=== PATIENT | male | born 1955 | race Caucasian/White ===

== ENCOUNTER 2017-08-01 10:26 | Emergency (ER) | payer SELFPAY ==
[~2017-08-01] VITALS: Ht 177.8 cm; Wt 75.1 kg
[~2017-08-01 10:26] MED LIST: Z.0.NO CURRENT MEDS
[2017-08-01 10:43] VITALS: BP 164/99; PULSE 94; RESP 16; TEMP 97.5; O2SAT 92
[2017-08-01] MEDS ORDERED: NAPR500 PO (11:00)
[2017-08-01] MEDS ORDERED: CYCL10TA PO (11:00)
[2017-08-01] MEDS ORDERED: LIDO1PAD52 TOPICAL (11:00)
[2017-08-01] MEDS ORDERED: IBUP1TAB7 PO (11:36)
[2017-08-01] MEDS ORDERED: ROBA750T PO (11:36)
--- NOTE | 2017-08-01 11:37 | PD ---
HPI Chief Complaint: Back/ Neck Pain or Injury Time Seen by Provider: 11:27 Travel History International Travel<30 days: No Contact w/Intl Traveler<30days: No Traveled to known affect area: No History of Present Illness HPI 62-year-old male here with upper and lower back pain 2 weeks. Patient reports he injured the back while playing softball when he overstretched stretched to catch a ball. He reports pain is intermittent, spasming in nature, worse with twisting and relieved with rest. He is currently taking Naprosyn and Flexeril with minimal relief. He denies fever, incontinence, saddle anesthesia, paresthesia or weakness in extremities. Symptom severity is moderate. [facility] Past Medical History Medical History: Denies Significant Hx Past Surgical History Surgical History: No Previous Surgery Social History Alcohol Use: No Tobacco Use: No Allergies-Medications (Allergen,Severity, Reaction): Coded Allergies: No Known Allergies (Verified Allergy, Mild, 08/01/17) Reported Meds & Prescriptions Reported Meds & Active Scripts Active Ibuprofen 800 Mg Tab 800 Mg PO Q6HR PRN Robaxin (Methocarbamol) 750 Mg Tab 750 Mg PO QID Reported Lidocaine Patch 12 HR (Lidocaine) 5 % Patch 1 Patch TOPICAL DAILY Remove patch after 12 hours Naprosyn (Naproxen) 500 Mg Tab 500 Mg PO BID Flexeril (Cyclobenzaprine HCl) 10 Mg Tab 10 Mg PO TID Review of Systems Except as stated in HPI: all other systems reviewed are Neg Physical Exam Narrative GENERAL: Alert, well-appearing male in no distress. SKIN: Warm and dry. HEAD: Normocephalic. EYES: No scleral icterus. No injection or drainage. NECK: Supple, trachea midline. No JVD or lymphadenopathy. CARDIOVASCULAR: Regular rate and rhythm without murmurs, gallops, or rubs. RESPIRATORY: Breath sounds equal bilaterally. No accessory muscle use. GASTROINTESTINAL: Abdomen soft, non-tender, nondistended. MUSCULOSKELETAL: No cyanosis, or edema. Normal strength and sensation in all extremities BACK: No tenderness of the cervical, thoracic, lumbar spine. Without obvious deformity. No CVA tenderness. Generalized tenderness to the paraspinous musculature of the back NEUROLOGICAL: Awake and alert. Motor and sensory grossly within normal limits. Five out of 5 muscle strength in all muscle groups. Dorsiflex and plantarflex intact Data Data Last Documented VS Vital Signs Date Time Temp Pulse Resp B/P (MAP) Pulse Ox O2 Delivery O2 Flow Rate FiO2 08/01/17 10:43 97.5 94 16 164/99 (120) 92 Orders Orders Ed Discharge Order (08/01/17 11:37) Ketorolac Inj (Toradol Inj) (08/01/17 11:45) Orphenadrine Inj (Norflex Inj) (08/01/17 11:45) MDM Medical Decision Making Medical Screen Exam Complete: Yes Emergency Medical Condition: Yes Differential Diagnosis Strain versus sprain versus fracture Narrative Course 62 year old male with upper and lower back pain after playing softball 2 weeks ago. On exam patient has no spinal tenderness. He has generalized tenderness to the paraspinous musculature of the back. He has a normal neurologic exam. He was instructed to stop the Naprosyn and Flexeril and start the medications prescribed today. Diagnosis Primary Impression: Upper back strain Qualified Codes: S29.012A - Strain of muscle and tendon of back wall of thorax , initial encounter Referrals: Primary Care Physician Additional Instructions: Avoid heavy lifting or strenuous activity. Use ice and/or heat for comfort. Take medications as prescribed. Scripts Ibuprofen (Ibuprofen) 800 Mg Tab 800 MG PO Q6HR Y for PAIN, #40 TAB 0 Refills Prov: Janee Chiu 08/01/17 Methocarbamol (Robaxin) 750 Mg Tab 750 MG PO QID for Muscle Spasm, #15 TAB 0 Refills Prov: Janee Chiu 08/01/17 Disposition: 01 DISCHARGE HOME Condition: Stable Janee Chiu Aug 01, 2017 11:37
[2017-08-01] MEDS ORDERED: ORPHENADRINE INJ 60 MG/2 ML AMP IM ONE (11:45)
[2017-08-01] MEDS ORDERED: KETOROLAC TROMETHAMINE 60 MG/2 ML (IM) VIAL IM ONE (11:45)
== END 2017-08-01 11:58 | disposition home or self-care (01) ==
LOC: PHEFT 10:26
DX: S29.012A Strain of muscle and tendon of back wall of thorax, initial encounter (principal); M54.5 Low back pain; X50.9XXA Other and unspecified overexertion or strenuous movements or postures, initial encounter; Y93.64 Activity, baseball
CPT/HCPCS: 96372; 99284; J1885; J2360

== ENCOUNTER 2017-09-22 10:22 | Inpatient (IN) | payer SELFPAY ==
[2017-09-22 12:14] LABS: AUTOMATED NEUTROPHIL # 13.9 TH/MM3 (1.8-7.7); BASOPHIL # 0.1 TH/MM3 (0-0.2); BASOPHIL % 0.4 % (0.0-2.0); EOSINOPHIL # 0.2 TH/MM3 (0-0.4); EOSINOPHIL % 0.9 % (0.0-4.0); HEMATOCRIT 46.4 % (39.0-51.0); HEMO FLAGS DIFF FINAL; HEMOGLOBIN 15.3 GM/DL (13.0-17.0); INTERNATIONAL NORMALIZED RATIO 1.2 RATIO; LYMPH % 9.2 % (9.0-44.0); LYMPHOCYTE # 1.5 TH/MM3 (1.0-4.8); MEAN CELL VOLUME 85.6 FL (80.0-100.0); MEAN CORPUSCULAR HEMOGLOBIN 28.3 PG (27.0-34.0); MEAN CORPUSCULAR HGB CONC 33.1 % (32.0-36.0); MEAN PLATELET VOLUME 10.2 FL (7.0-11.0); MONO % 6.3 % (0.0-8.0); MONOCYTE # 1.1 TH/MM3 (0-0.9); NEUT % 83.2 % (16.0-70.0); PLATELET COUNT 258 TH/MM3 (150-450); PROTHROMBIN TIME - PATIENT 12.1 SEC (9.8-11.6); RED BLOOD COUNT 5.42 MIL/MM3 (4.50-5.90); RED CELL DISTRIBUTION WIDTH 14.9 % (11.6-17.2); WHITE BLOOD COUNT 16.7 TH/MM3 (4.0-11.0)
[2017-09-22 12:23] LABS: ALBUMIN 2.8 GM/DL (3.4-5.0); ALT (GPT) 39 U/L (12-78); ANION GAP 12 MEQ/L (5-15); AST (GOT) 52 U/L (15-37); BICARBONATE 23.5 MEQ/L (21.0-32.0); BLOOD UREA NITROGEN 25 MG/DL (7-18); CALCIUM 9.8 MG/DL (8.5-10.1); CHLORIDE 101 MEQ/L (98-107); CREATININE 1.01 MG/DL (0.60-1.30); GLOMERULAR FILTRATION RATE 74 ML/MIN (>89); GLUCOSE,RANDOM 107 MG/DL (74-106); POTASSIUM 3.7 MEQ/L (3.5-5.1); SODIUM (NA) 136 MEQ/L (136-145)
[2017-09-22 12:32] LABS: ALKALINE PHOSPHATASE 250 U/L (45-117); TOTAL BILIRUBIN ADULT 0.9 MG/DL (0.2-1.0); TOTAL PROTEIN 6.4 GM/DL (6.4-8.2)
[2017-09-22] MEDS: GADODIAMIDE PF 287 MG/ML 5 ML VIAL (for RAD MRI) IVCONTRAST (12:42)
[2017-09-22] MEDS: SODIUM CHLOR 0.9% 1000 ML INJ 1,000 ML IV (13:02)
[2017-09-22] MEDS: MORPHINE SULFATE 2 MG/ML INJ IV PUSH (13:02)
[2017-09-22] MEDS: ONDANSETRON HCL 4 MG/2 ML VIAL IV PUSH (13:03)
[2017-09-22] MEDS ORDERED: SENNOSIDES 8.6 MG TAB PO ×2 (16:00→16:45)
[2017-09-22] MEDS ORDERED: LACTULOSE SYRUP 20 GM/30 ML CUP PO ×2 (16:00→16:45)
[2017-09-22] MEDS ORDERED: SODIUM CHLORIDE 0.9% FLUSH 10 ML FLUSH IV FLUSH ×3 (16:00→21:00)
[2017-09-22] MEDS ORDERED: MAGNESIUM HYDROXIDE SUSP 30 ML CUP PO ×2 (16:00→16:45)
[2017-09-22] MEDS ORDERED: ONDANSETRON HCL 4 MG/2 ML VIAL IVP ×2 (16:00→16:45)
[2017-09-22] MEDS ORDERED: IBUPROFEN 800 MG TAB PO (16:00)
[2017-09-22] MEDS ORDERED: NALOXONE HCL 0.4 MG/ML AMP IV PUSH ×2 (16:00→16:45)
[2017-09-22] MEDS ORDERED: BISACODYL 10 MG SUPP RECTAL ×2 (16:00→16:45)
[2017-09-22] MEDS: LORazepam 1 MG TAB PO (16:22)
[2017-09-22 18:22] LABS: AMORPHOUS SEDIMENT, URINE MOD; BACTERIA, URINE OCC /hpf; BILIRUBIN, URINE NEG (NEG); BLOOD, URINE NEG (NEG); COMMENT (UR) CULT NOT INDICATED; CULTURE IF INDICATED CULT NOT INDICATED; GLUCOSE,URINE NEG (NEG); HYALINE CAST, URINE 7 /lpf (RARE); KETONE, URINE 10 mg/dL (NEG); MUCUS URINE MANY /lpf (OCC); NITRITE,URINE NEG (NEG); PH, URINE 5.5 (5.0-8.5); URINE COLOR YELLOW (YELLW/STRAW); URINE LEUKOCYTE ESTERASE NEG (NEG)
[2017-09-22] MEDS: IOHEXOL 350 MG/ML 10 ML VIAL (for RAD DIAG) IVCONTRAST (18:30)
[2017-09-22] MEDS: CYCLOBENZAPRINE HCL 10 MG TAB PO (18:33)
[2017-09-22] MEDS: oxyCODONE/ACETAMINOPHEN 10 MG/325 MG TAB PO ×2 (18:34→22:21)
[2017-09-22] MEDS ORDERED: DOCUSATE SODIUM 50 MG/SENNA 8.6 MG TAB PO (21:00)
[2017-09-22] MEDS: DOCUSATE SODIUM 50 MG/SENNA 8.6 MG TAB PO (22:18)
[2017-09-22] MEDS: SODIUM CHLORIDE 0.9% FLUSH 10 ML FLUSH IV FLUSH (22:21)
[2017-09-23] MEDS ORDERED: IBUPROFEN 400 MG TAB PO (01:15)
[2017-09-23 06:46] LABS: AUTOMATED NEUTROPHIL # 9.6 TH/MM3 (1.8-7.7); BASOPHIL # 0.1 TH/MM3 (0-0.2); BASOPHIL % 0.6 % (0.0-2.0); EOSINOPHIL # 0.7 TH/MM3 (0-0.4); HEMATOCRIT 40.4 % (39.0-51.0); HEMO FLAGS DIFF FINAL; HEMOGLOBIN 13.7 GM/DL (13.0-17.0); LYMPH % 15.5 % (9.0-44.0); LYMPHOCYTE # 2.1 TH/MM3 (1.0-4.8); MEAN CORPUSCULAR HEMOGLOBIN 29.1 PG (27.0-34.0); MEAN CORPUSCULAR HGB CONC 33.8 % (32.0-36.0); MEAN PLATELET VOLUME 10.5 FL (7.0-11.0); MONO % 8.2 % (0.0-8.0); MONOCYTE # 1.1 TH/MM3 (0-0.9); NEUT % 70.7 % (16.0-70.0); PLATELET COUNT 217 TH/MM3 (150-450); RED CELL DISTRIBUTION WIDTH 14.6 % (11.6-17.2); WHITE BLOOD COUNT 13.6 TH/MM3 (4.0-11.0)
[2017-09-23 07:05] LABS: ALBUMIN 2.3 GM/DL (3.4-5.0); ANION GAP 6 MEQ/L (5-15); AST (GOT) 43 U/L (15-37); BLOOD UREA NITROGEN 26 MG/DL (7-18); CALCIUM 9.5 MG/DL (8.5-10.1); CHLORIDE 104 MEQ/L (98-107); CREATININE 1.18 MG/DL (0.60-1.30); GLOMERULAR FILTRATION RATE 62 ML/MIN (>89); GLUCOSE,RANDOM 94 MG/DL (74-106); POTASSIUM 3.8 MEQ/L (3.5-5.1); SODIUM (NA) 139 MEQ/L (136-145)
[2017-09-23 07:06] LABS: ALT (GPT) 33 U/L (12-78)
[2017-09-23 07:08] LABS: ALKALINE PHOSPHATASE 207 U/L (45-117); TOTAL BILIRUBIN ADULT 0.6 MG/DL (0.2-1.0); TOTAL PROTEIN 5.6 GM/DL (6.4-8.2)
[2017-09-23] MEDS: CYCLOBENZAPRINE HCL 10 MG TAB PO ×3 (08:00→18:00)
[2017-09-23] MEDS: DOCUSATE SODIUM 50 MG/SENNA 8.6 MG TAB PO ×2 (08:00→21:00)
[2017-09-23] MEDS: oxyCODONE/ACETAMINOPHEN 10 MG/325 MG TAB PO (08:01)
[2017-09-23] MEDS: SODIUM CHLORIDE 0.9% FLUSH 10 ML FLUSH IV FLUSH ×2 (08:01→21:00)
[2017-09-23] MEDS: MIDAZOLAM HCL 2 MG/2 ML VIAL (08:29)
[2017-09-23] MEDS: fentaNYL CITRATE 250 MCG/5 ML AMP (08:30)
[2017-09-23] MEDS: LIDOCAINE HCL 1% 20 ML VIAL (08:30)
[2017-09-23] MEDS: IOHEXOL 350 MG/ML 10 ML VIAL (for RAD DIAG) IVCONTRAST (09:30)
[2017-09-23] MEDS ORDERED: PNEUMOCOCCAL POLYVALENT INJ 25 MCG/0.5 ML SYR IM (10:00)
[2017-09-23] MEDS ORDERED: INFLUENZA VIRUS VACCINE (QUADRIVALENT) 0.5 ML SYR IM (10:00)
[2017-09-23] MEDS: LIDOCAINE HCL 1% PF 5 ML SYRINGE OTHER (12:00)
[2017-09-23] MEDS: ROCURONIUM INJ 50 MG/5 ML SYRINGE IV PUSH (12:00)
[2017-09-23] MEDS: DEXAMETHASONE SOD PHOS 4 MG/ML VIAL IV (12:00)
[2017-09-23] MEDS: PROPOFOL 200 MG/20 ML AMP IV (12:00)
[2017-09-23] MEDS: PHENYLEPHRINE HCL 10 MG/ML VIAL IV (12:00)
[2017-09-23] MEDS: ONDANSETRON HCL 4 MG/2 ML VIAL IV (12:00)
[2017-09-23] MEDS: LACTATED RINGER'S 1000 ML INJ 2,000 ML IV (12:00)
[2017-09-23] MEDS: PHENYLEPH/NS 1000 MCG/10 ML SYR IV (12:00)
[2017-09-23] MEDS ORDERED: PROPOFOL 500 MG/50 ML INJ 100 ML (12:09)
[2017-09-23] MEDS ORDERED: ACETAMINOPHEN 1000 MG/100 ML 100 ML IV (12:09)
[2017-09-23] MEDS: VANCOMYCIN HCL 1000 MG VIAL ×2 (13:24→14:15)
[2017-09-23] MEDS: ceFAZolin 2 GM PREMIX 50 ML (13:24)
[2017-09-23] MEDS: SODIUM CHLOR 0.9% 250 ML INJ 250 ML (13:24)
[2017-09-23] MEDS: THROMBIN (TOPICAL) 5,000 UNIT VIAL (14:15)
[2017-09-23] MEDS: GENTAMICIN SULFATE 80 MG/2 ML VIAL (14:15)
[2017-09-23] MEDS: GELFOAM SIZE 100 (14:15)
[2017-09-23] MEDS: GELATIN POWDER 1 GM PACKET (14:15)
[2017-09-23 16:04] LABS: BLOOD GAS BASE EXCESS -1.2 mmol/L (-2-2); BLOOD GAS CARBOXYHEMOGLOBIN 1.2 % (0-4); BLOOD GAS HCO3 24 mmol/L (22-26); BLOOD GAS METHEMOGLOBIN 1.2 % (0-2); BLOOD GAS O2 HGB SATURATION 94 % (90-100); BLOOD GAS OXYGEN CONTENT 13.7 Vol % (12.0-20.0); BLOOD GAS PCO2 49 mmHg (38-42); BLOOD GAS PO2 95 mmHg (61-120); BLOOD GAS TOTAL HGB 10.3 G/DL (12.0-16.0); CRITICAL VALUE NO; TEMP CORR TO 98.6
[2017-09-23 16:05] LABS: FIO2 90 %; STAT YES; ULNAR PULSE PRESENT
[2017-09-23] MEDS ORDERED: PROPOFOL 1000 MG/100 ML INJ 100 ML (17:33)
[2017-09-23] MEDS ORDERED: ACETAMINOPHEN 325 MG TAB PO (17:45)
[2017-09-23] MEDS ORDERED: MORPHINE SULFATE 4 MG/ML INJ IV PUSH (17:45)
[2017-09-23] MEDS: NS + KCL 20 MEQ INJ 1,000 ML IV (17:45)
[2017-09-23] MEDS ORDERED: MORPHINE SULFATE 2 MG/ML INJ IV PUSH (17:45)
[2017-09-23] MEDS ORDERED: DO NOT ADM ANY ANTICOAGULANT DRUGS (17:55)
[2017-09-23 18:03] LABS: BLOOD GAS BASE EXCESS -1.7 mmol/L (-2-2); BLOOD GAS CARBOXYHEMOGLOBIN 1.2 % (0-4); BLOOD GAS HCO3 23 mmol/L (22-26); BLOOD GAS METHEMOGLOBIN 1.1 % (0-2); BLOOD GAS O2 HGB SATURATION 94 % (90-100); BLOOD GAS PCO2 45 mmHg (38-42); BLOOD GAS PO2 88 mmHg (61-120); BLOOD GAS TOTAL HGB 9.8 G/DL (12.0-16.0); CRITICAL VALUE NO; DRAW SITE ART LINE; FIO2 100 %; OXYGEN DEVICE VENTILATOR; STAT YES; TEMP CORR TO 98.6; ULNAR PULSE PRESENT; VENT SETTINGS 550/AC12/PEEP8
[2017-09-23 18:06] LABS: HEMATOCRIT 30.3 % (39.0-51.0); HEMOGLOBIN 10.3 GM/DL (13.0-17.0); MEAN CELL VOLUME 85.7 FL (80.0-100.0); MEAN CORPUSCULAR HEMOGLOBIN 29.2 PG (27.0-34.0); MEAN CORPUSCULAR HGB CONC 34.1 % (32.0-36.0); MEAN PLATELET VOLUME 9.6 FL (7.0-11.0); PLATELET COUNT 199 TH/MM3 (150-450); RED BLOOD COUNT 3.53 MIL/MM3 (4.50-5.90); RED CELL DISTRIBUTION WIDTH 14.8 % (11.6-17.2); REVIEW FLAG FINAL; WHITE BLOOD COUNT 17.8 TH/MM3 (4.0-11.0)
[2017-09-23 18:36] LABS: ANION GAP 7 MEQ/L (5-15); BICARBONATE 25.5 MEQ/L (21.0-32.0); BLOOD UREA NITROGEN 17 MG/DL (7-18); CALCIUM 8.4 MG/DL (8.5-10.1); CHLORIDE 106 MEQ/L (98-107); CREATININE 0.87 MG/DL (0.60-1.30); GLOMERULAR FILTRATION RATE 88 ML/MIN (>89); GLUCOSE,RANDOM 133 MG/DL (74-106); POTASSIUM 4.6 MEQ/L (3.5-5.1); SODIUM (NA) 138 MEQ/L (136-145)
[2017-09-23] MEDS ORDERED: TERBUTALINE INJ 1 MG/ML AMP SQ (19:00)
[2017-09-23] MEDS: RASS Change Order XX (19:00)
[2017-09-23] MEDS: ceFAZolin 2 GM PREMIX 50 ML IV (20:52)
[2017-09-23] MEDS: PHENYLEPHRINE 40 MG in D5W 500 ML IV (20:53)
[2017-09-24] MEDS ORDERED: RESP: ALBUTEROL 2.5 MG/IPRATROPIUM 0.5 MG NEB (PRN) NEB
[2017-09-24] MEDS: ENOXAPARIN SODIUM 40 MG/0.4 ML SYRINGE SQ (00:28)
[2017-09-24] MEDS: FAMOTIDINE 20 MG/2 ML VIAL IV PUSH ×2 (00:29→12:30)
[2017-09-24] MEDS: RESP: ALBUTEROL 2.5 MG/IPRATROPIUM 0.5 MG NEB (SCH) NEB ×4 (03:22→20:06)
[2017-09-24] MEDS: PROPOFOL 1000 MG/100 ML IV ×4 (03:43→21:13)
[2017-09-24] MEDS: NS + KCL 20 MEQ INJ 1,000 ML IV ×2 (03:43→12:31)
[2017-09-24] MEDS: PHENYLEPHRINE 40 MG in D5W 500 ML IV ×3 (03:45→20:41)
[2017-09-24] MEDS: ceFAZolin 2 GM PREMIX 50 ML IV ×2 (04:00→12:30)
[2017-09-24 05:36] LABS: AUTOMATED NEUTROPHIL # 15.7 TH/MM3 (1.8-7.7); BASOPHIL # 0.1 TH/MM3 (0-0.2); BASOPHIL % 0.5 % (0.0-2.0); EOSINOPHIL % 0.2 % (0.0-4.0); HEMATOCRIT 31.6 % (39.0-51.0); HEMO FLAGS DIFF FINAL; HEMOGLOBIN 10.6 GM/DL (13.0-17.0); LYMPH % 7.3 % (9.0-44.0); LYMPHOCYTE # 1.3 TH/MM3 (1.0-4.8); MEAN CELL VOLUME 86.1 FL (80.0-100.0); MEAN CORPUSCULAR HEMOGLOBIN 28.8 PG (27.0-34.0); MEAN CORPUSCULAR HGB CONC 33.4 % (32.0-36.0); MEAN PLATELET VOLUME 9.8 FL (7.0-11.0); MONO % 6.7 % (0.0-8.0); MONOCYTE # 1.2 TH/MM3 (0-0.9); NEUT % 85.3 % (16.0-70.0); PLATELET COUNT 214 TH/MM3 (150-450); RED BLOOD COUNT 3.67 MIL/MM3 (4.50-5.90); RED CELL DISTRIBUTION WIDTH 14.5 % (11.6-17.2); WHITE BLOOD COUNT 18.4 TH/MM3 (4.0-11.0)
[2017-09-24 06:03] LABS: ANION GAP 8 MEQ/L (5-15); BICARBONATE 25.2 MEQ/L (21.0-32.0); BLOOD UREA NITROGEN 16 MG/DL (7-18); CALCIUM 8.3 MG/DL (8.5-10.1); CHLORIDE 105 MEQ/L (98-107); CREATININE 0.79 MG/DL (0.60-1.30); GLOMERULAR FILTRATION RATE 99 ML/MIN (>89); GLUCOSE,RANDOM 122 MG/DL (74-106); POTASSIUM 4.2 MEQ/L (3.5-5.1); SODIUM (NA) 138 MEQ/L (136-145)
[2017-09-24 07:28] LABS: BLOOD GAS BASE EXCESS -0.7 mmol/L (-2-2); BLOOD GAS CARBOXYHEMOGLOBIN 1.2 % (0-4); BLOOD GAS HCO3 23 mmol/L (22-26); BLOOD GAS METHEMOGLOBIN 1.1 % (0-2); BLOOD GAS O2 HGB SATURATION 92 % (90-100); BLOOD GAS OXYGEN CONTENT 13.2 Vol % (12.0-20.0); BLOOD GAS PCO2 38 mmHg (38-42); BLOOD GAS PO2 71 mmHg (61-120); BLOOD GAS TOTAL HGB 10.2 G/DL (12.0-16.0); TEMP CORR TO 98.6
[2017-09-24 07:29] LABS: CRITICAL VALUE NO; DRAW SITE ART LINE; FIO2 100 %; OXYGEN DEVICE VENTILATOR; STAT NO; ULNAR PULSE PRESENT; VENT SETTINGS PRVC/AC
[2017-09-24] MEDS: CYCLOBENZAPRINE HCL 10 MG TAB PO ×3 (09:41→18:00)
[2017-09-24] MEDS: DOCUSATE SODIUM 50 MG/SENNA 8.6 MG TAB PO ×2 (09:41→20:13)
[2017-09-24] MEDS: PANTOPRAZOLE SODIUM 40 MG VIAL IVP (09:42)
[2017-09-24] MEDS: fentaNYL DRIP 250 ML IV (09:44)
[2017-09-24] MEDS: SODIUM CHLORIDE 0.9% FLUSH 10 ML FLUSH IV FLUSH ×2 (09:44→20:13)
[2017-09-24 10:11] LABS: BLOOD GAS BASE EXCESS -0.2 mmol/L (-2-2); BLOOD GAS CARBOXYHEMOGLOBIN 1.3 % (0-4); BLOOD GAS HCO3 24 mmol/L (22-26); BLOOD GAS METHEMOGLOBIN 1.2 % (0-2); BLOOD GAS O2 HGB SATURATION 93 % (90-100); BLOOD GAS OXYGEN CONTENT 13.2 Vol % (12.0-20.0); BLOOD GAS PCO2 37 mmHg (38-42); BLOOD GAS PO2 77 mmHg (61-120); CRITICAL VALUE NO; TEMP CORR TO 98.6
[2017-09-24 10:12] LABS: DRAW SITE ART LINE; FIO2 90 %; NUMBER OF ARTERIAL PUNCTURES 0; OXYGEN DEVICE VENTILATOR; ULNAR PULSE PRESENT
[2017-09-24 10:13] LABS: STAT NO
[2017-09-25] MEDS: FAMOTIDINE 20 MG/2 ML VIAL IV PUSH (00:13)
[2017-09-25] MEDS: ENOXAPARIN SODIUM 40 MG/0.4 ML SYRINGE SQ (00:14)
[2017-09-25] MEDS: NS + KCL 20 MEQ INJ 1,000 ML IV (00:14)
[2017-09-25] MEDS: ACETAMINOPHEN 325 MG TAB PO (00:29)
[2017-09-25] MEDS: RESP: ALBUTEROL 2.5 MG/IPRATROPIUM 0.5 MG NEB (SCH) NEB ×2 (03:26→07:50)
[2017-09-25] MEDS: PROPOFOL 1000 MG/100 ML IV (03:50)
[2017-09-25] MEDS: PHENYLEPHRINE 40 MG in D5W 500 ML IV ×2 (03:51→08:51)
[2017-09-25] MEDS: CYCLOBENZAPRINE HCL 10 MG TAB PO (08:46)
[2017-09-25] MEDS: DOCUSATE SODIUM 50 MG/SENNA 8.6 MG TAB PO (08:46)
[2017-09-25] MEDS: PANTOPRAZOLE SODIUM 40 MG VIAL IVP (08:48)
[2017-09-25] MEDS: fentaNYL DRIP 250 ML IV (08:49)
[2017-09-25] MEDS ORDERED: LORazepam 2 MG/ML VIAL IV PUSH ×3 (11:30)
[2017-09-25] MEDS ORDERED: ACETAMINOPHEN 650 MG SUPP RECTAL (11:30)
[2017-09-25] MEDS ORDERED: MORPHINE SULFATE 4 MG/ML INJ IV PUSH (11:30)
[2017-09-25] MEDS ORDERED: FUROSEMIDE 20 MG/2 ML VIAL IV PUSH (11:30)
[2017-09-25] MEDS ORDERED: HYOSCYAMINE 0.5 MG/ML AMP IV PUSH (11:30)
[2017-09-25] MEDS ORDERED: MORPHINE SULFATE 8 MG/ML INJ IV PUSH (11:30)
[2017-09-25] MEDS: HYOSCYAMINE 0.5 MG/ML AMP IV PUSH (11:43)
[2017-09-25] MEDS: MORPHINE SULFATE 8 MG/ML INJ IV PUSH (11:44)
[2017-09-25] MEDS: LORazepam 2 MG/ML VIAL IV PUSH ×3 (11:44→12:25)
[2017-09-25] MEDS: MORPHINE SULFATE 4 MG/ML INJ IV PUSH ×2 (11:57→12:25)
== END 2017-09-25 14:35 | disposition expired | DRG 456 ==
LOC: N03B 09-23 17:41 → NEPC 10:22 → NEDA 15:34 → N03A 09-23 18:50 → HCIN 19:48
PROC: 0RG7071 Fusion of 2 to 7 Thoracic Vertebral Joints with Autologous Tissue Substitute, Posterior Approach, Posterior Column, Open Approach (ICD-10-PCS; principal; 2017-09-23 12:17)
PROC: 5A1945Z Respiratory Ventilation, 24-96 Consecutive Hours (ICD-10-PCS; 2017-09-23 12:17)
PROC: 0PS404Z Reposition Thoracic Vertebra with Internal Fixation Device, Open Approach (ICD-10-PCS; 2017-09-23 12:17)
PROC: 0RGA071 Fusion of Thoracolumbar Vertebral Joint with Autologous Tissue Substitute, Posterior Approach, Posterior Column, Open Approach (ICD-10-PCS; 2017-09-23 12:17)
DX: M84.58XA Pathological fracture in neoplastic disease, other specified site, initial encounter for fracture (principal); J95.821 Acute postprocedural respiratory failure; R57.9 Shock, unspecified; C78.01 Secondary malignant neoplasm of right lung; J91.0 Malignant pleural effusion; C78.7 Secondary malignant neoplasm of liver and intrahepatic bile duct; C78.02 Secondary malignant neoplasm of left lung; C34.31 Malignant neoplasm of lower lobe, right bronchus or lung; C79.51 Secondary malignant neoplasm of bone; G95.20 Unspecified cord compression; Z87.891 Personal history of nicotine dependence; J43.9 Emphysema, unspecified; R63.4 Abnormal weight loss; G89.29 Other chronic pain; Z83.3 Family history of diabetes mellitus; K59.00 Constipation, unspecified; Z66 Do not resuscitate; Z51.5 Encounter for palliative care
CPT/HCPCS: 36415; 36430; 71045; 71260; 72070; 72157; 72158; 74177; 76000; 80048; 80053; 81001; 82805; 82948; 84443; 85025; 85027; 85610; 85730; 86850; 86900; 86901; 86920; 87070; 87205; 88307; 88307-59; 88311; 88331; 88341; 88342; 93005; 94002; 94003; 94640; 94664; 96361; 96374; 96375; 97163-GP; 99285-25